=== PATIENT | male | born 1995 | race African-American/Black ===

== ENCOUNTER 2019-03-11 20:17 | Emergency (ER) | payer OTHER ==
[~2019-03-11 20:17] MED LIST: LIDOCAINE 1% MPF 30 ML VIAL ONE
[2019-03-11] MEDS ORDERED: TETANUS & DIPHTHERIA TOX,ADULT 0.5 ML VIAL ONE (20:44)
[2019-03-11] MEDS ORDERED: CEFAZOLIN/SWI 1gm 1 GM/10 ML SYR ONE (20:44)
[2019-03-11] MEDS ORDERED: NA CHLORIDE 0.9% 100 ML IV ONE (20:44)
--- NOTE | 2019-03-11 20:55 | ER ---
Nurse's Notes [facility] Name: Krystal Anderson Age: 23 yrs Sex: Male : 1995 Arrival Date: 03/11/2019 Time: 20:20 Bed 7 Private MD: Diagnosis: Laceration of radial artery at wrist and hand level of left arm Presentation: 03/11 20:10 Presenting complaint: EMS states: 1-2 mm laceration to L wrist that was sustained while ss accidently breaking the glass while cleaning a window. EMS reports that they applied a pressure dressing with 4x4 and kerlix, but the dressing was bleeding through rather quickly. Quit clot was then applied and then a pressure dressing which has controlled the bleeidng. Transition of care: [facility]. Onset of symptoms was March 11, 2019 at 19:45. Risk Assessment: Do you want to hurt yourself or someone else? Patient reports no desire to harm self or others. Care prior to arrival: None. 20:10 Acuity: YUNG 2 20:10 Method Of Arrival: EMS: [facility] 20:10 Initial Sepsis Screen: Does the patient meet any 2 criteria? No. Patient's initial rr5 sepsis screen is negative. Does the patient have a suspected source of infection? No. Patient's initial sepsis screen is negative. Historical: - Allergies: 20:23 No Known Allergies; ss - Home Meds: 20:23 None [Active]; ss - PMHx: 20:23 None; ss - PSHx: 20:23 None; ss - Immunization history:: Adult Immunizations up to date. - Ebola Screening: : Patient denies exposure to infectious person No symptoms or risks identified at this time. - Social history:: Smoking status: Patient/guardian denies using tobacco. Screenin:55 Abuse screen: Denies threats or abuse. Denies injuries from another. Nutritional rr5 screening: No deficits noted. Tuberculosis screening: No symptoms or risk factors identified. Fall Risk IV access (20 points). Total Young Fall Scale indicates No Risk (0-24 pts). Assessment: 20:10 General: Appears in no apparent distress. uncomfortable, Behavior is calm, cooperative, rr5 appropriate for age, escorted by powder guard. on handcuff. in with pressure dressing applied at left wrist.. 20:10 Pain: Complains of pain in left wrist Pain does not radiate. Pain currently is 8 out of rr5 10 on a pain scale. Quality of pain is described as aching, Pain began suddenly, Is intermittent. Neuro: Level of Consciousness is awake, alert, obeys commands, Oriented to person, place, time, situation, Appropriate for age. Cardiovascular: Capillary refill < 3 seconds Patient's skin is warm and dry. Respiratory: Airway is patent Respiratory effort is even, unlabored, Respiratory pattern is regular, symmetrical. GI: No signs and/or symptoms were reported involving the gastrointestinal system. : No signs and/or symptoms were reported regarding the genitourinary system. 20:10 EENT: No signs and/or symptoms were reported regarding the EENT system. Derm: Skin is rr5 intact, Skin temperature is warm Wound noted left wrist Wound is lacerated wound approximate 1 cm -2 cm blood spurts when opened. pressure dressing re applied. 20:10 Musculoskeletal: Capillary refill < 3 seconds, Reports he cannot move his left thumb. rr5 20:35 Reassessment: pressure dressing applied to left wrist area. rr5 22:00 Reassessment: Patient appears in no apparent distress at this time. Patient is alert, rr5 oriented x 3, equal unlabored respirations, skin warm/dry/pink. bleeding controlled under pressure dressing. patient is for transfer to other facility. awaiting for transfer approval. 22:15 Reassessment: Patient appears in no apparent distress at this time. [place] [id number] mustapha Busby staff certified nurse midwife spoke over the phone and accepted the case. 22:29 Reassessment: [facility] reports that EMS transportation to [facility] will arrive within ss the next two hours. 23:10 Reassessment: Patient appears in no apparent distress at this time. Patient and/or rr5 family updated on plan of care and expected duration. Pain level reassessed. Patient is alert, oriented x 3, equal unlabored respirations, skin warm/dry/pink. no complaints made. 23:54 Reassessment: Patient appears in no apparent distress at this time. Patient is alert, rr5 oriented x 3, equal unlabored respirations, skin warm/dry/pink. report given to [facility] EMS staff zee. vitally stable, breathing spontaneously at room air with IV cannula at right hand G20 intact. Vital Signs: 20:05 BP 140 / 75; Pulse 85; Resp 16; Temp 99.1(O); Pulse Ox 100% on R/A; Weight 86.18 kg lp1 (R); Height 6 ft. 4 in. (193.04 cm); 20:30 BP 135 / 67; Pulse 72; Resp 16; Pulse Ox 100% on R/A; lp1 21:27 BP 132 / 75; Pulse 70; Resp 16; Pulse Ox 98% on R/A; Pain 0/10; rr5 22:08 BP 135 / 70; Pulse 79; Resp 18; Temp 99; Pulse Ox 99% ; rr5 22:55 BP 131 / 62; Pulse 85; Resp 16; Pulse Ox 97% ; rr5 23:40 BP 127 / 72; Pulse 80; Resp 17; Temp 98.3; Pulse Ox 99% ; rr5 20:05 Body Mass Index 23.13 (86.18 kg, 193.04 cm) lp1 ED Course: 20:10 Arm band placed on right wrist. rr5 20:10 Patient has correct armband on for positive identification. Bed in low position. Call rr5 light in reach. Side rails up X2. Pulse ox on. NIBP on. 20:20 Patient arrived in ED. fc 20:20 Bryson Abreu MD is Attending Physician. tw4 20:22 Triage completed. ss 20:27 initiated transfer with Care Management spoke with Kamari MARCELO. mw2 20:37 Duong Renee RN is Primary Nurse. rr5 20:50 Inserted saline lock: 20 gauge in right hand, using aseptic technique. Blood collected. rr5 21:01 Wrist Left (2 View) XRAY In Process Unspecified. EDMS 21:50 Care Management called back for acceptance. mw2 22:15 No provider procedures requiring assistance completed. Patient transferred, IV remains rr5 in place. intact, No redness/swelling at site. Administered Medications: 20:15 Drug: Lidocaine (1 %) 5 ml {Note: given by dr. abreu.} Volume: 20 ml; Route: rr5 Infiltration; 21:48 Follow up: Response: No adverse reaction rr5 20:40 Not Given (Physician Discretion): Tetanus Immune Globulin 250 units IM once tw4 20:53 Drug: Tetanus-Diphtheria Toxoid Adult 0.5 ml {Print And Pattern Designer: [employer]. Exp: rr5 09/27/2020. Lot #: [id number]. } Route: IM; Site: left deltoid; 22:00 Follow up: Response: No adverse reaction rr5 20:54 Dru grams of (Ancef 1 grams, NS 0.9% 100 ml) Route: IVPB; Site: right hand; rr5 21:31 Follow up: Response: No adverse reaction; IV Status: Completed infusion; IV Intake: rr5 100ml Intake: 21:31 IV: 100ml; Total: 100ml. rr5 Outcome: 20:54 ER care complete, transfer ordered by . tw4 23:56 Transferred by ground EMS to other acute care facility: [facility].. rr5 Transfer form completed. 23:56 Condition: stable 23:56 Instructed on the need for transfer. 23:58 Patient left the ED. rr5 Signatures: Dispatcher [employer] EDMS Kristy Bray RN RN Vero Nielson RN RN Purvi Robertson RN RN lp1 Bryson Abreu MD MD tw4 Radha Morelos mw2 Duong Renee RN RN rr5 Corrections: (The following items were deleted from the chart) 08:10 Presenting complaint: EMS states: 1-2 mm laceration to L wrist that was sustained ss while accidently breaking the glass while cleaning a window. EMS reports that they applied a pressure dressing with 4x4 and kerlix, but the dressing was bleeding through rather quickly. Quit clot was then applied and then a pressure dressing which has controlled the bleeidng. 08:10 Transition of care: [facility] 08:10 Onset of symptoms was March 11, 2019 at 19:45 [facility] : 08:10 Risk Assessment: Do you want to hurt yourself or someone else? Patient reports no ss desire to harm self or others. 08:10 Initial Sepsis Screen: [facility] 08:10 Care prior to arrival: None. [facility] 08:10 Acuity: YUNG 2 [facility] 08:10 Method Of Arrival: EMS: [facility] 08:10 Immunization history: Adult Immunizations up to date, ss ss 21:45 08:10 Ebola Screening: Patient denies exposure to infectious person No symptoms or ss risks identified at this time ss 22:08 20:10 Derm: Skin is intact, Skin temperature is warm Wound noted left wrist Wound is rr5 lacerated wound approximate 0.5 cm -1 cm blood spurts when opened. pressure dressing re applied. rr5 22:19 22:15 Reassessment: Patient appears in no apparent distress at this time. [facility] rr5 mustapha busby staff certified nurse midwife spoke over the phone and accepted the case. rr5
--- NOTE | 2019-03-11 20:55 | EDPHYS ---
Physician Documentation [facility] Name: Krystal Anderson Age: 23 yrs Sex: Male : 1995 Arrival Date: 03/11/2019 Time: 20:20 Bed 7 Private MD: ED Physician Bryson Abreu HPI: 03/11 21:14 This 23 yrs old Black Male presents to ER via EMS with complaints of Laceration To Arm tw4 - Left wrist. 21:14 The patient or guardian reports injury, a laceration, clean. The complaints affect the tw4 left wrist diffusely. Context: The problem was sustained at an industrial site, resulted from puncture wound. Onset: The symptoms/episode began/occurred just prior to arrival. Modifying factors: The symptoms are alleviated by nothing, the symptoms are aggravated by nothing. Associated signs and symptoms: Pertinent negatives: cyanosis distally, decreased sensation distally, fever, nausea, numbness distally, tingling distally. Compartment Syndrome negative for numbness, pain, tingling. The patient has not experienced similar symptoms in the past. Historical: - Allergies: 20:23 No Known Allergies; ss - Home Meds: 20:23 None [Active]; ss - PMHx: 20:23 None; ss - PSHx: 20:23 None; ss - Immunization history:: Adult Immunizations up to date. - Ebola Screening: : Patient denies exposure to infectious person No symptoms or risks identified at this time. - Social history:: Smoking status: Patient/guardian denies using tobacco. ROS: 21:14 Constitutional: Negative for fever, chills, and weight loss, Eyes: Negative for injury, tw4 pain, redness, and discharge, Cardiovascular: Negative for chest pain, palpitations, and edema, Respiratory: Negative for shortness of breath, cough, wheezing, and pleuritic chest pain, Abdomen/GI: Negative for abdominal pain, nausea, vomiting, diarrhea, and constipation, Back: Negative for injury and pain. 21:14 MS/extremity: Positive for injury or acute deformity, puncture, of the palmar aspect of left wrist. Exam: 21:14 Hand exam: Exam is positive for injury, puncture, swelling, tenderness, ROM: limited tw4 active range of motion due to pain, limited passive range of motion due to pain, Pulses: are absent in the left radial artery, Perfusion: the extremity is with brisk capillary refill, sensation intact. Severe pain noted. 21:14 Skin: injury, laceration(s), the wound is approximately 0.5 cm(s), of the palmar aspect of left wrist. Vital Signs: 20:05 BP 140 / 75; Pulse 85; Resp 16; Temp 99.1(O); Pulse Ox 100% on R/A; Weight 86.18 kg lp1 (R); Height 6 ft. 4 in. (193.04 cm); 20:30 BP 135 / 67; Pulse 72; Resp 16; Pulse Ox 100% on R/A; lp1 21:27 BP 132 / 75; Pulse 70; Resp 16; Pulse Ox 98% on R/A; Pain 0/10; rr5 22:08 BP 135 / 70; Pulse 79; Resp 18; Temp 99; Pulse Ox 99% ; rr5 22:55 BP 131 / 62; Pulse 85; Resp 16; Pulse Ox 97% ; rr5 23:40 BP 127 / 72; Pulse 80; Resp 17; Temp 98.3; Pulse Ox 99% ; rr5 20:05 Body Mass Index 23.13 (86.18 kg, 193.04 cm) lp1 MDM: 20:21 Patient medically screened. tw4 21:14 Differential diagnosis: dislocation. Data reviewed: vital signs, nurses notes. Data tw4 interpreted: Pulse oximetry: Interpretation: normal. Counseling: I had a detailed discussion with the patient and/or guardian regarding: the historical points, exam findings, and any diagnostic results supporting the discharge/admit diagnosis, radiology results. ED course: D/[facility] accepts for transfer and agrees with treatment and transfer. ED course: Xrays negative for FB. 03/11 20:36 Order name: CBC with Diff tw4 03/11 20:36 Order name: Wrist Left (2 View) XRAY tw4 Administered Medications: 20:15 Drug: Lidocaine (1 %) 5 ml {Note: given by dr. abreu.} Volume: 20 ml; Route: rr5 Infiltration; 21:48 Follow up: Response: No adverse reaction rr5 20:40 Not Given (Physician Discretion): Tetanus Immune Globulin 250 units IM once tw4 20:53 Drug: Tetanus-Diphtheria Toxoid Adult 0.5 ml {[employer]: [employer]. Exp: rr5 09/27/2020. Lot #: [id number]. } Route: IM; Site: left deltoid; 22:00 Follow up: Response: No adverse reaction rr5 20:54 Dru grams of (Ancef 1 grams, NS 0.9% 100 ml) Route: IVPB; Site: right hand; rr5 21:31 Follow up: Response: No adverse reaction; IV Status: Completed infusion; IV Intake: rr5 100ml Disposition: 03/12 06:32 Chart complete. tw4 Disposition: 03/11/19 20:[address] [facility]. Diagnosis is Laceration of radial artery at wrist and hand level of left arm. - Reason for transfer: Higher level of care. - Accepting physician is Dr So. - Condition is Stable. - Problem is new. - Symptoms have improved. Signatures: Dispatcher [employer] EDMS Vero Nielson RN RN Bryson Ellis MD MD tw4 Duong Renee RN RN rr5 Corrections: (The following items were deleted from the chart) 03/11 21:45 08:10 Immunization history: Adult Immunizations up to date, [facility] 21:45 08:10 Ebola Screening: Patient denies exposure to infectious person No symptoms or ss risks identified at this time 22:03 20:54 03/11/2019 20:[address] [facility]. Diagnosis is Laceration of tw4 radial artery at wrist and hand level of left arm. Reason for transfer: Higher level of care. Accepting physician is Dr Forrest. Condition is Stable. Problem is new. Symptoms have improved. 4 23:58 22:03 03/11/2019 20:[address] [facility]. Diagnosis is Laceration of rr5 radial artery at wrist and hand level of left arm. Reason for transfer: Higher level of care. Accepting physician is Dr So. Condition is Stable. Problem is new. Symptoms have improved. tw4
[2019-03-11 21:00] LABS: Basophils % 0.5 % (0-1.3); Hematocrit 46.5 % (39.6-49.0); MPV 9.2 fL (7.6-11.3); RBC Red Blood Cell Count 5.19 M/uL (4.33-5.43)
--- NOTE | 2019-03-11 21:16 | RAD REPORT ---
EXAM DESCRIPTION: RAD - Wrist Left 2 View - 03/11/2019 9:00 pm CLINICAL HISTORY: PAIN Pain COMPARISON: No comparisons FINDINGS: No fracture or foreign body.
[2019-03-12 02:01] VITALS: O2SAT 99
[2019-03-12 02:06] VITALS: BP 127/72; TEMP 98.3
== END 2019-03-11 23:58 | disposition short-term general hospital (02) ==
LOC: ER 20:17
DX: S55.112A Laceration of radial artery at forearm level, left arm, initial encounter (principal); W45.8XXA Other foreign body or object entering through skin, initial encounter; Y93.89 Activity, other specified; Y92.89 Other specified places as the place of occurrence of the external cause; Y99.8 Other external cause status; Z23 Encounter for immunization
CPT/HCPCS: 36415; 85025; 90471; 90714; 96365; 99285; J0690